=== PATIENT | male | born 1970 | race Caucasian/White ===

== ENCOUNTER 2023-06-29 10:28 | Emergency (ER) | payer OTHER, SELFPAY ==
--- NOTE | 2023-06-29 10:32 | ED.DENTAL ---
HPI - Dental/Oral General Chief complaint: Dental/Oral Stated complaint: Dental Pain Time Seen by Provider: 06/29/23 10:43 Mode of arrival: ambulatory Limitations: no limitations History of Present Illness HPI Narrative: 52-year-old male presents with concern for right lower dental pain. Reports he has had problems with this teeth for some time. He reports he has been alternate Tylenol ibuprofen. Reports jaw swelling. Reports he has a dentist that he can follow-up with. He denies fever or trouble swallowing MD Complaint: tooth pain Related Data Allergies Allergy/AdvReac Type Severity Reaction Status Date / Time No Known Allergies Allergy Verified 06/29/23 10:49 Review of Systems Review of Systems: CONSTITUTIONAL: Denies malaise, chills, sweats, or fever. EYES: Denies visual changes ENT: Denies rhinorrhea, congestion, sinus pain, otalgia or sore throat. Reports right lower dental pain CARDIOVASCULAR: Denies chest pain, palpitations RESPIRATORY: Denies cough or dyspnea. SKIN: Denies rash or itching. MUSCULOSKELETAL: Denies myalgia. NEUROLOGIC: Denies numbness, weakness, or headache. All systems reviewed & are unremarkable except as noted in HPI and below PMFSH Comments At time of signature, agree with nursing past medical, surgical, social and family history. There is no relevant family history pertinent to the presenting complaint Exam Narrative: GENERAL: Well-appearing, well-nourished, and in no acute distress. HEAD: Normocephalic, atraumatic. EYES: PERRLA, sclera clear ENT: Nares clear, turbinates pink, no rhinorrhea or epistaxis. Mucous membranes moist. TM pearly velazco with sharp light reflex bilaterally; no tragal tenderness. Oropharynx without erythema or lesions. Tonsils not enlarged and without exudate. Missing teeth, broken teeth, caries, right jaw swelling NECK: Supple. No lymphadenopathy. CHEST: No respiratory distress. Speaks in full sentences. HEART: Regular rate and rhythm. SKIN: Warm, dry, no visible rash. NEURO: Alert and oriented x3. PSYCH: Normal mood and affect Course Course Emergency Course: Patient is aware of diagnosis, understands and agrees to treatment plan. Anticipatory guidance given. Patient agrees to follow-up as directed and is aware of reasons to seek care at the emergency department. Portions of this record may have been created with voice recognition software Level of Care: [facility] Care Visit Vital Signs Vital signs: Reviewed. MDM - Dental/Oral MDM Narrative Medical decision making narrative: Patients pain and complaint coupled with physical findings are consistant with dentalgia. There are no focal signs of space occupying lesions that are compromising to the airway; no dysphagia, odynophagia, dysphonia, or dyspnea. No uvular deviation or soft palate edema. Patient is non-toxic appearing. The floor of the mouth is soft with no signs of Karel's Angina; no induration below mandible, no neck pain. Patient is without trismus or drooling and able to swallow secretions. Patient is felt appropriate for discharge home with dental follow up. Differential Diagnosis Differential diagnosis: Likely gingival abscess, dental caries, toothache, dental abscess, fracture of tooth and aphthous ulcer Critical Care Time Critical Care Time Critical Care Time: No Discharge Plan Discharge Clinical Impression: Dental abscess Patient Disposition: Home, Self-Care Condition: Stable Instructions: Antibiotic Form, Dental Abscess (ED) Additional Instructions: Take antibiotic as directed Avoid temperature extremes May apply heat or ice to the face Gentle brushing and flossing Alternate Tylenol and ibuprofen as needed for pain Follow-up with the dentist as soon as possible Prescriptions: New clindamycin HCl 300 mg capsule 300 mg PO Q8H 7 Days Qty: 21 0RF ketorolac 10 mg tablet 10 mg PO Q6H PRN (Reason: pain) 5 Days Qty: 20 0RF Follow-up/Refer
[2023-06-29 10:40] VITALS: BP 164/74; PULSE 100; RESP 16; TEMP 36.3; O2SAT 99
== END 2023-06-29 10:58 | disposition home or self-care (01) ==
PROVIDERS: Emergency Provider Nurse Practitioner
DX: K04.7 Periapical abscess without sinus (principal)
CPT/HCPCS: 99203; G0463

== ENCOUNTER 2023-12-01 12:48 | Emergency (ER) | payer OTHER, SELFPAY ==
--- NOTE | ~2023-12-01 | XR_ITS ---
EXAMINATION: XR wrist RT min 3V DATE: 12/01/2023 13:39 INDICATION: Right wrist pain post fall TECHNIQUE: Posteroanterior, ulnar deviation, oblique, and lateral views of the right wrist were obtai delma. COMPARISON: none FINDINGS: Bone alignment is normal. No fracture. Mild osteoarthritis at the first interphalangeal and fifth dis katalina interphalangeal joints. Subtle calcific density projecting over the soft tissues at the palmar/ul dar side of the wrist near the pisiform on the oblique projection which could represent dystrophic so ft tissue calcifications are partially calcified loose body potentially in the pisotriquetral recess. There is soft tissue swelling along the ulnar side of the wrist. IMPRESSION: 1. No acute osseous abnormality. Reviewed, dictated and finalized at location A.
[2023-12-01 13:16] VITALS: BP 158/75; PULSE 93; RESP 20; TEMP 36.8; O2SAT 100
--- NOTE | 2023-12-01 13:43 | ED.UPPEXIN ---
HPI - Extremity Injury (Upper) General Chief Complaint: Extremity Injury, Upper Stated Complaint: Right Wrist/Hand Pain Time Seen by Provider: 12/01/23 13:35 Source: patient and RN notes reviewed Mode of arrival: ambulatory Limitations: no limitations History of Present Illness HPI narrative: 53-year-old male presents with concern for right wrist pain, swelling. Reports he fell last night. Reports pain started this morning. He reports difficulty with full digit flexion. Denies open skin. Denies decreased strength or sensation. MD complaint: injury to: right and wrist Related Data Home Medications Medication Instructions Recorded Confirmed No Home Medications 12/01/23 12/01/23 Allergies Allergy/AdvReac Type Severity Reaction Status Date / Time No Known Allergies Allergy Verified 12/01/23 12:53 Review of Systems Review of Systems: CONSTITUTIONAL: Denies malaise, chills, sweats, or fever. SKIN: Denies rash or itching, open skin, laceration, abrasion, redness, warmth MUSCULOSKELETAL: Reports right wrist pain, swelling, redness NEUROLOGIC: Denies numbness, weakness All systems reviewed & are unremarkable except as noted in HPI and below PMFSH Comments At time of signature, agree with nursing past medical, surgical, social and family history. There is no relevant family history pertinent to the presenting complaint Exam Narrative: GENERAL: Well-appearing, well-nourished, and in no acute distress. HEAD: Normocephalic, atraumatic. EYES: PERRLA, conjunctivae clear NECK: Supple. CHEST: Speaks in full sentences. No respiratory distress. HEART: Regular rate and rhythm. Normal and equal peripheral pulses. EXTREMITIES: Right wrist, hand, digits have grossly normal strength and sensation, limited range of motion with flexion. Mild circumferential wrist edema, mild erythema, no warmth or ecchymosis. Normal sensation with sensitivity to light touch and pain. General wrist tenderness. No open wounds, no skin tenting, no devitalized tissue or atrophy, no trophic changes, no obvious deformity, alignment normal, nearby joints and structures intact. Distal pulses palpable and equal bilaterally, skin warm, dry, pink. Capillary refill less than 3 seconds. SKIN: Warm, dry, no rash. NEURO: Alert and oriented x3. PSYCH: Normal mood and affect Course Course Emergency Course: Patient is aware of diagnosis, understands and agrees to treatment plan. Anticipatory guidance given. Patient agrees to follow-up as directed and is aware of reasons to seek care at the emergency department. Portions of this record may have been created with voice recognition software Level of Care: Express Care Visit Vital Signs Vital signs: Vital Signs Temperature 98.2 F 12/01/23 13:16 Pulse Rate 93 12/01/23 13:16 Respiratory Rate 20 12/01/23 13:16 Blood Pressure 158/75 H 12/01/23 13:16 Pulse Oximetry 100 12/01/23 13:16 Oxygen Delivery Room Air 12/01/23 13:16 Temperature 98.2 F 12/01/23 13:16 Pulse Rate 93 12/01/23 13:16 Respiratory Rate 20 12/01/23 13:16 Blood Pressure 158/75 H 12/01/23 13:16 Pulse Oximetry 100 12/01/23 13:16 Oxygen Delivery Room Air 12/01/23 13:16 Reviewed. MDM - Extremity Injury (Upper) MDM Narrative Medical decision making narrative: Patients injury and pain is consistent with musculoskeletal etiology. No signs of neurological or vascular compromise on exam. Compartments and tissues are soft without signs of compartment syndrome. Pain is felt appropriate for further evaluation on an outpatient basis. Imaging Data My impression: Images reviewed, interpreted by radiologist, agree, see report. Radiologist's impression: EXAMINATION: XR wrist RT min 3V DATE: 12/01/2023 13:39 INDICATION: Right wrist pain post fall TECHNIQUE: Posteroanterior, ulnar deviation, oblique, and lateral views of the right wrist were obtained. COMPARISON: none FINDINGS: Bone alignment i
== END 2023-12-01 14:10 | disposition home or self-care (01) ==
PROVIDERS: Emergency Provider Nurse Practitioner
DX: S63.501A Unspecified sprain of right wrist, initial encounter (principal); S66.911A Strain of unspecified muscle, fascia and tendon at wrist and hand level, right hand, initial encounter; W19.XXXA Unspecified fall, initial encounter
CPT/HCPCS: 73110; 99213; G0463

== ENCOUNTER 2024-06-09 11:16 | Emergency (ER) | payer OTHER, SELFPAY ==
--- NOTE | ~2024-06-09 | XR_ITS ---
Left Shoulder Technique: AP and scapular Y views were obtained. Clinical History: Pain Findings: No fracture or dislocation is seen. Osseous alignment is anatomic. The glenohumeral and acr omioclavicular joint spaces are preserved. Soft tissues are unremarkable. Impression: Unremarkable left shoulder radiographs. Reviewed, dictated and finalized at [facility]. Impression: Unremarkable left shoulder radiographs.
[2024-06-09 11:28] VITALS: BP 177/79; PULSE 82; RESP 19; TEMP 37.1; O2SAT 98
--- NOTE | 2024-06-09 11:28 | ED.UPPEXIN ---
HPI - Extremity Injury (Upper) General Chief Complaint: Extremity Problem,Nontraumatic Stated Complaint: Left Shoulder Pain Time Seen by Provider: 06/09/24 11:20 Source: patient Mode of arrival: ambulatory Limitations: no limitations History of Present Illness HPI narrative: Patient is a 53 mm presents with left shoulder pain for 2 weeks. 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 Patient also reports prying a heavy door open and about 10 months later pain started. Patient has tried [id number] medications with relief. Denies numbness, tingling or weakness to distal portion arm. Reports pain with movement. Denies any swelling or bruising Related Data Home Medications Medication Instructions Recorded Confirmed syringe with needle 3 mL 21 gauge 06/09/24 06/09/24 x 1 1/2 (BD Luer-Lisset Syringe) testosterone cypionate 200 mg/mL 100 mg IM DIRECTED 06/09/24 06/09/24 intramuscular oil Allergies Allergy/AdvReac Type Severity Reaction Status Date / Time No Known Allergies Allergy Verified 06/09/24 11:28 Review of Systems Review of Systems: All systems reviewed & are unremarkable except as noted in HPI and below Constitutional: Constitutional: Denies body ache(s), Denies chills, Denies fatigue, Denies fever(s), Denies headache(s), Denies malaise and Denies weakness Eyes: Eyes: Denies blurry vision, Denies irritation and Denies loss of vision ENT: Denies otalgia, Denies headache(s), Denies nasal discharge, Denies sinus pain and Denies sore throat Cardiovascular: Cardiovascular: Denies chest pain, Denies irregular heart rhythm and Denies dyspnea Respiratory: Respiratory: Denies dyspnea Gastrointestinal: Gastrointestinal: Denies abdominal pain, Denies melena, Denies hematochezia, Denies diarrhea, Denies nausea and Denies vomiting Musculoskeletal: Musculoskeletal: Denies back pain, Denies myalgias and Reports arthralgias Integumentary/Breasts: Skin/Breast: Denies pruritus and Denies rash Neurologic: Denies headache(s), Denies loss of vision and Denies weakness Psychiatric: Psychiatric: Reports no additional psychiatric complaints Endocrine: Endocrine: Denies fatigue PMFSH Social History Social History Smoking status: Never smoker Comments At time of signature, agree with nursing past medical, surgical, social and family history. There is no relevant family history pertinent to the presenting complaint. Exam Const: General: cooperative, healthy appearing, comfortable, no acute distress and well nourished Nutritional Appearance: well nourished Orientation/consciousness: patient oriented x3 Limitations: no limitations HENMT: Head: normal to inspection, normocephalic and atraumatic Ears: hearing grossly normal bilaterally and external ears normal Face/Nose/Sinus: Normal external nose present, normal facial exam and face symmetric Face and sinus: normal facial exam and face symmetric Mouth: Yes lip normal Eyes: General: appearance normal, both eyes and all related structures Alignment and Position: alignment normal and position normal Periorbital: periorbital findings normal Eyelids: eyelids normal Pupils: Equal, round and reactive pupils present EOM: EOMs intact bilaterally Neck: Neck: normal visual inspection, full ROM and supple Chest: Chest palpation & inspection: normal inspection of the chest Resp: Effort & Inspection: normal respiratory effort and able to speak in complete sentences Auscultation: clear to auscultation bilaterally Cardio: Rate: regular rate Rhythm: regular rhythm Heart sounds: S1 normal heart sound present and S2 normal heart sound present GI: Inspection: normal to inspection Skin: General skin exam: normal color and no rashes or lesions noted Neuro: General: patient oriented x3 and moves all extremities Cranial nerves: Yes Equal, round and reactive pupils present Speech:
== END 2024-06-09 12:45 | disposition home or self-care (01) ==
PROVIDERS: Emergency Provider Nurse Practitioner Family
DX: S46.002A Unspecified injury of muscle(s) and tendon(s) of the rotator cuff of left shoulder, initial encounter (principal); X50.3XXA Overexertion from repetitive movements, initial encounter
CPT/HCPCS: 73030; 99213; A4565; G0463

== ENCOUNTER 2024-06-12 15:10 | Emergency (ER) | payer OTHER, SELFPAY ==
[2024-06-12 15:23] VITALS: BP 182/79; PULSE 109; RESP 16; TEMP 36.6; O2SAT 99
--- NOTE | 2024-06-12 16:09 | PC.NURSE ---
1610 pt seen leaving clinic at 1610.
== END 2024-06-12 16:10 | disposition left against medical advice (07) ==
PROVIDERS: Emergency Provider Internal Medicine Hematology & Oncology
DX: Z53.21 Procedure and treatment not carried out due to patient leaving prior to being seen by health care provider (principal)
CPT/HCPCS: 99199

== ENCOUNTER 2024-08-04 16:56 | Emergency (ER) | payer OTHER, SELFPAY ==
--- NOTE | ~2024-08-04 | US_ITS ---
EXAMINATION: US venous doppler LE RT DATE: 08/04/2024 19:12 INDICATION: Right lower limb pain TECHNIQUE: Grayscale ultrasound images without and with compression and Doppler ultrasound images of the right lower extremity veins were obtained. COMPARISON: None. FINDINGS: The visualized portions of right common femoral vein, profunda (deep) femoral vein, femoral vein, pop liteal vein, peroneal trunk, posterior tibial veins, peroneal veins, gastrocnemius vein and greater s aphenous vein outflow are patent. IMPRESSION: 1. No deep venous thrombosis in the right lower limb. Reviewed, dictated and finalized at location A. RSHED ENGINEER
--- NOTE | ~2024-08-04 | XR_ITS ---
EXAMINATION: XR hip RT 2V w AP pelvis DATE: 08/04/2024 19:05 INDICATION: Nontraumatic right hip pain TECHNIQUE: Anteroposterior view of the pelvis and anteroposterior and frog-leg lateral views of the a ffected hip were obtained. COMPARISON: None. FINDINGS: Bone alignment is normal. No fracture or suspected osteonecrosis. There is mild osteoarthritis at the bilateral hips with small marginal osteophytes along the femoral heads and acetabula. There is decre ased anterosuperior right femoral head neck offset on the frog-leg lateral projection which could pre dispose towards cam-type femoral acetabular impingement. Small enthesophyte at the bilateral lesser t rochanters. Moderate lower lumbar spondylosis. Mild osteoarthritis at the bilateral sacroiliac joints . IMPRESSION: 1. No acute osseous abnormality. 2. Moderate lower lumbar spondylosis and mild bilateral hip and sacroiliac osteoarthritis. Reviewed, dictated and finalized at location A. R PROGRAMMER IMPRESSION: 1. No acute osseous abnormality. 2. Moderate lower lumbar spondylosis and mild bilateral hip and sacroiliac oste oarthritis.
[2024-08-04 16:59] VITALS: BP 187/64; PULSE 103; RESP 18; TEMP 36.7; O2SAT 100
--- NOTE | 2024-08-04 18:50 | ED_ITS ---
HPI - Extremity Injury (Lower) General Chief Complaint: Extremity Injury, Lower Stated Complaint: right leg pain Time Seen by Provider: 08/04/24 18:27 Source: patient Mode of arrival: wheelchair Limitations: no limitations History of Present Illness HPI Narrative: This is a 53-year-old male that presents to the emergency department for right hip pain. Ongoing over the last week. No known injury or trauma. Reports the pain radiates into his upper thigh. Denies fevers, erythema, or edema. Related Data Home Medications Medication Instructions Recorded Confirmed syringe with needle 3 mL 21 gauge 06/09/24 06/09/24 x 1 /2 (BD Luer-Lisset Syringe) testosterone cypionate 200 mg/mL 100 mg IM DIRECTED 06/09/24 06/09/24 intramuscular oil Allergies Allergy/AdvReac Type Severity Reaction Status Date / Time No Known Allergies Allergy Verified 06/09/24 11:28 Review of Systems Review of Systems: CONSTITUTIONAL: Denies fever SKIN: Denies rash MUSCULOSKELETAL: Reports joint pain, and myalgia. NEUROLOGIC: Denies numbness, or weakness. All systems reviewed & are unremarkable except as noted in HPI and below PMFSH Past Medical History Medical History (Updated 08/04/24 @ 20:08 by Ilda Richardson PA-C) No active medical problems Social History Social History (Updated 08/04/24 @ 18:51 by Ilda Richardson PA-C) Smoking status: Current every day smoker Exam Narrative: GENERAL: Well-appearing, well-nourished, and in no acute distress. HEAD: Normocephalic, atraumatic. EYES: EOMI. EXTREMITIES: Normal range of motion. No edema or erythema. Normal DP pulse. Normal sensation SKIN: Warm, dry, no rash. NEURO: No focal deficits. Alert and oriented x3. PSYCH: Normal mood and affect Course Course Emergency Course: patient updated on his workup and agrees with plan of care Vital Signs Vital signs: Vital Signs Temperature 98.1 F 08/04/24 16:59 Pulse Rate 103 H 08/04/24 16:59 Respiratory Rate 18 08/04/24 16:59 Blood Pressure 187/64 H 08/04/24 16:59 Pulse Oximetry 100 08/04/24 16:59 Oxygen Delivery Room Air 08/04/24 16:59 Temperature 98.1 F 08/04/24 16:59 Pulse Rate 103 H 08/04/24 16:59 Respiratory Rate 18 08/04/24 16:59 Blood Pressure 187/64 H 08/04/24 16:59 Pulse Oximetry 100 08/04/24 16:59 Oxygen Delivery Room Air 08/04/24 16:59 MDM - Extremity Injury (Lower) MDM Narrative Medical decision making narrative: patient presents to the emergency department for right hip pain due to ongoing over the last week. He is afebrile and nontoxic appearing. He is neurovascularly intact. Right hip/ pelvic x-ray without acute osseous abnormalities. Right lower extremity venous Doppler without evidence of DVT. Patient updated on his workup and agrees with plan of care. Will be given follow-up with Orthopedics. He was given warnings to return to the ER Differential Diagnosis Differential diagnosis: Likely other (hip sprain, DVT, osteoarthritis) Imaging Data Radiologist's impression: ITS Impressions Hip/Pelvis X-Ray 08/04/24 19:09 IMPRESSION: 1. No acute osseous abnormality. 2. Moderate lower lumbar spondylosis and mild bilateral hip and sacroiliac osteoarthritis. Venous Doppler Study 08/04/24 19:13 IMPRESSION: 1. No deep venous thrombosis in the right lower limb. Critical Care Time Critical Care Time Critical Care Time: No Discharge Plan Discharge Clinical Impression: Femoroacetabular impingement of right hip Osteoarthritis Qualifiers: Osteoarthritis location: hip Osteoarthritis type: unspecified Laterality: right Qualified Code(s): M16.11 - Unilateral primary osteoarthritis, right hip Patient Disposition: Home, Self-Care Condition: Stable Instructions: Osteoarthritis (ED) Additional Instructions: Return to the ER if you experience fever, redness and swelling of your extremity, numbness or any other symptoms that are concerning to you [id number] pain medication as needed. Prescribed pain medication as needed Follow up with orthopedics for further care. Prescriptions: New tramadol 50 mg tablet 50 mg PO Q6H PRN (Reason: pain) Qty: 10 0RF No Action testosterone cypionate 200 mg/mL oil 100 mg IM DIRECTED (DME) syringe with needle [BD Luer-Lisset Syringe] 3 mL 21 gauge x 1 1/2 syringe MISCELLANEOUS prednisone 20 mg tablet 40 mg PO DAILY 5 Days Qty: 10 0RF baclofen 10 mg tablet 10 mg PO TID 5 Days Qty: 15 0RF lidocaine 5 % adhesive patch,medicated 1 patch topical DAILY Qty: 15 0RF Rx Instructions: leave on most painful area for up to 12 hrs Follow-up/Referrals: Jorge Tran MD [Physician] - PHYSICIAN,TABLET MACHINE OPERATOR [Primary Care Provider] -
[2024-08-04 20:21] VITALS: BP 130/62; PULSE 72; RESP 18; TEMP 36.6; O2SAT 99
== END 2024-08-04 20:24 | disposition home or self-care (01) ==
PROVIDERS: Emergency Provider Physician Assistant
DX: M25.851 Other specified joint disorders, right hip (principal); M16.0 Bilateral primary osteoarthritis of hip; F17.200 Nicotine dependence, unspecified, uncomplicated; M47.816 Spondylosis without myelopathy or radiculopathy, lumbar region; M46.1 Sacroiliitis, not elsewhere classified
CPT/HCPCS: 73502; 93971; 99284

== ENCOUNTER 2024-08-09 16:30 | Emergency (ER) | payer OTHER, SELFPAY ==
--- NOTE | ~2024-08-09 | XR_ITS ---
XR shoulder RT min 2V Ordering provider: Ilda Richardson PA-C History: . right shoulder pain . Comparison: None. FINDINGS: BONES: No acute fracture or dislocation. JOINT SPACES: The acromioclavicular joint is normal. The glenohumeral joint is normal. SOFT TISSUES: Normal. IMPRESSION: No acute osseous abnormality right shoulder. Reviewed, dictated and finalized at location A. HER OF GIFTED STUDENTS
[2024-08-09 16:38] VITALS: BP 170/74; PULSE 110; RESP 18; TEMP 36.9; O2SAT 99
--- NOTE | 2024-08-09 23:00 | PC.NURSE ---
Assumed care of pt from TIANNA Robb at this time.
[2024-08-09 23:02] VITALS: BP 152/74; PULSE 104; RESP 19; TEMP 36.9; O2SAT 98
--- NOTE | 2024-08-09 23:51 | ED_ITS ---
HPI - Extremity Problem General Chief complaint: Extremity Problem,Nontraumatic Stated complaint: right shoulder pain-injured in May Time Seen by Provider: 08/09/24 23:01 Source: patient Mode of arrival: ambulatory Limitations: no limitations History of Present Illness HPI Narrative: This is a 53-year-old male that presents to the emergency department for right shoulder pain. Ongoing since that injury at work several months ago. Reports he needs a note to be able to go back to work. Reports decreased range of motion due to pain. Denies numbness. Related Data Home Medications Medication Instructions Recorded Confirmed syringe with needle 3 mL 21 gauge 06/09/24 06/09/24 x 1 1/2 (BD Luer-Lisset Syringe) testosterone cypionate 200 mg/mL 100 mg IM DIRECTED 06/09/24 06/09/24 intramuscular oil Allergies Allergy/AdvReac Type Severity Reaction Status Date / Time No Known Allergies Allergy Verified 06/09/24 11:28 Review of Systems Review of Systems: CONSTITUTIONAL: Denies fever MUSCULOSKELETAL: Reports joint pain, and myalgia. NEUROLOGIC: Denies numbness, or weakness. All systems reviewed & are unremarkable except as noted in HPI and below PMFSH Past Medical History Medical History (Updated 08/09/24 @ 23:55 by Ilda Richardson PA-C) No active medical problems Social History Social History (Updated 08/04/24 @ 18:51 by Ilda Richardson PA-C) Smoking status: Current every day smoker Exam Narrative: GENERAL: Well-appearing, well-nourished, and in no acute distress. HEAD: Normocephalic, atraumatic. EYES: EOMI. EXTREMITIES: Decreased active ROM in the right shoulder due to pain. No edema or erythema. Normal radial pulse. Normal sensation SKIN: Warm, dry, no rash. NEURO: No focal deficits. Alert and oriented x3. PSYCH: Normal mood and affect Course Course Emergency Course: Patient updated on his workup and agrees with plan of care Vital Signs Vital signs: Vital Signs Temperature 98.5 F 08/09/24 16:38 Pulse Rate 110 H 08/09/24 16:38 Respiratory Rate 18 08/09/24 16:38 Blood Pressure 170/74 H 08/09/24 16:38 Pulse Oximetry 99 08/09/24 16:38 Oxygen Delivery Room Air 08/09/24 16:38 Temperature 98.4 F 08/09/24 23:02 Pulse Rate 104 H 08/09/24 23:02 Respiratory Rate 19 08/09/24 23:02 Blood Pressure 152/74 H 08/09/24 23:02 Pulse Oximetry 98 08/09/24 23:02 Oxygen Delivery Room Air 08/09/24 16:38 MDM - Extremity (Nontraumatic) MDM Narrative Medical decision making narrative: Patient presents to the emergency department for right shoulder pain. Ongoing over several months after an injury at work. He is neurovascularly intact. Right shoulder x-ray without acute osseous abnormalities. Will be given a note to return to work. He is to follow up with primary provider. He was given warnings to return to the ER Imaging Data Radiologist's impression: ITS Impressions Shoulder X-Ray 08/09/24 23:17 IMPRESSION: No acute osseous abnormality right shoulder. Critical Care Time Critical Care Time Critical Care Time: No Discharge Plan Discharge Clinical Impression: Acute pain of right shoulder Patient Disposition: Home, Self-Care Condition: Stable Instructions: Shoulder Pain (ED) Additional Instructions: Return to the ER if you experience fever, redness and swelling of your arm, weakness, numbness, or any other symptoms that are concerning to you Rest, use ice/heat, take anti-inflammatories (Aleve, Ibuprofen, Naproxen, etc) or Tylenol as needed for pain Follow up with your primary care doctor Prescriptions: No Action testosterone cypionate 200 mg/mL oil 100 mg IM DIRECTED (DME) syringe with needle [BD Luer-Lisset Syringe] 3 mL 21 gauge x 1 1/2 syringe MISCELLANEOUS prednisone 20 mg tablet 40 mg PO DAILY 5 Days Qty: 10 0RF baclofen 10 mg tablet 10 mg PO TID 5 Days Qty: 15 0RF lidocaine 5 % adhesive patch,medicated 1 patch topical DAILY Qty: 15 0RF Rx Instructions: leave on most painful area for up to 12 hrs tramadol 50 mg tablet 50 mg PO Q6H PRN (Reason: pain) Qty: 10 0RF Follow-up/Referrals: Obdulio Hernandes MD [Physician] - PHYSICIAN,TECHNICIAN TRAINEE [Primary Care Provider] - Stand Alone Forms: Work/School Release IP
== END 2024-08-10 00:13 | disposition home or self-care (01) ==
PROVIDERS: Emergency Provider Physician Assistant
DX: M25.511 Pain in right shoulder (principal); F17.210 Nicotine dependence, cigarettes, uncomplicated
CPT/HCPCS: 73030; 99283

== ENCOUNTER 2024-09-15 15:52 | Emergency (ER) | payer OTHER, SELFPAY ==
[2024-09-15 15:58] VITALS: BP 127/69; PULSE 83; RESP 20; TEMP 36.4; O2SAT 98
--- NOTE | 2024-09-15 16:19 | ED_ITS ---
HPI - URI/Sore Throat General Chief Complaint: Upper Respiratory Infection Stated Complaint: Respiratory/fever/SOB Time Seen by Provider: 09/15/24 16:19 Source: patient Mode of arrival: ambulatory Limitations: no limitations History of Present Illness HPI Narrative: 54-year-old male presents with complaint of cough, congestion, fatigue, body aches, fever for 2 days. Denies nausea vomiting diarrhea. No abdominal discomfort. Taking [id number] medications to treat symptoms. All systems reviewed and negative except as noted above. Related Data Home Medications ?Medication ?Instructions ?Recorded ?Confirmed ?Last Taken ?Type syringe with needle 3 mL 21 gauge 06/09/24 06/09/24 Unknown History x 1 09/09 (BD Luer-Lisset Syringe) testosterone cypionate 200 mg/mL 100 mg IM DIRECTED 06/09/24 06/09/24 Unknown History intramuscular oil Allergies Allergy/AdvReac Type Severity Reaction Status Date / Time No Known Allergies Allergy Verified 09/15/24 15:54 Review of Systems Review of Systems: CONSTITUTIONAL: reports fever, chills, or sweats. EYES: Denies visual changes, redness, or discharge. ENT: reports rhinorrhea, congestion, sore throat. Denies otalgia. CARDIOVASCULAR: Denies chest pain, palpitations, or edema. RESPIRATORY: Reports cough. Denies dyspnea. GASTROINTESTINAL: Denies abdominal pain, nausea, vomiting, or diarrhea. GENITOURINARY: Denies dysuria or hematuria. SKIN: Denies rash or itching. MUSCULOSKELETAL: Denies back pain, joint pain, or myalgia. NEUROLOGIC: Denies headache, numbness, or weakness. PSYCHIATRIC: Denies anxiety or depression. All other systems reviewed are negative, except as documented in HPI. PMFSH Past Medical History Medical History (Updated 09/15/24 @ 16:24 by Cherrie Hunter NP) No active medical problems Social History Social History (Updated 08/04/24 @ 18:51 by Ilda Richardson PA-C) Smoking status: Current every day smoker Comments At time of signature, agree with nursing past medical, surgical, social and family history. There is no relevant family history pertinent to the presenting complaint. Exam Narrative: GENERAL: This is a well-nourished, well-developed patient, ill-appearing but no acute distress HEAD: normocephalic, atraumatic. EYES: PERRL. Sclera clear/white. Vision is grossly intact. EARS: External ears normal, auditory canals clear and without drainage, TMs normal without perforation. Hearing grossly intact. NOSE: External nose normal with clear nasal drainage, mild congestion THROAT: Mucous membranes moist, mild erythema with no swelling or exudates NECK: Neck supple, non-tender without lymphadenopathy, masses or thyromegaly. CARDIOVASCULAR: Regular rate and rhythm without murmurs, gallops, or rubs. RESPIRATORY: Clear to auscultation. Breath sounds equal bilaterally. No wheezes, rales, or rhonchi. SKIN: warm, Dry, intact with no suspicious lesions or rash, good texture and turgor. NEURO: awake, alert, and oriented to person, place and time. There were no obvious focal neurologic abnormalities. EXTREMITIES: No joint tenderness, effusion, or edema noted. Course Course Level of Care: Express Care Visit Vital Signs Vital signs: Vital Signs Temperature 36.4 C L 09/15/24 15:58 Pulse Rate 83 09/15/24 15:58 Respiratory Rate 20 09/15/24 15:58 Blood Pressure 127/69 09/15/24 15:58 Pulse Oximetry 98 09/15/24 15:58 Oxygen Delivery Room Air 09/15/24 15:58 Temperature 36.4 C L 09/15/24 15:58 Pulse Rate 83 09/15/24 15:58 Respiratory Rate 20 09/15/24 15:58 Blood Pressure 127/69 09/15/24 15:58 Pulse Oximetry 98 09/15/24 15:58 Oxygen Delivery Room Air 09/15/24 15:58 reviewed MDM - URI/Sore Throat MDM Narrative Medical decision making narrative: Patient is aware of diagnosis, understands and agrees to treatment plan. Anticipatory guidance given. Patient agrees to follow-up as directed and is aware of reasons to seek care at the emergency department. Portions of this record may have been created with voice recognition software positive influenza a. Lungs clear to auscultation. Will prescribe antiviral at patient's request. Patient well-appearing, nontoxic. Lab Data Labs: Lab Results 09/15/24 Range/Units 16:01 POC Influenza A Ag Negative (Negative) POC Influenza B Ag Negative (Negative) POC SARS CoV-2 Ag Negative (Negative) Discharge Plan Discharge Clinical Impression: Influenza A Patient Disposition: Home, Self-Care Condition: Stable Instructions: Influenza (ED) Additional Instructions: you were positive for influenza today. Influenza is a virus and symptoms may last 7-10 days. Take antiviral as prescribed. Take Tylenol or ibuprofen every 6-8 hours as needed for pain and fever. Drink at least 64 oz of water a day. Follow-up with your primary care physician if symptoms are not improving. Patient Language: Croatian Prescriptions: New oseltamivir [Tamiflu] 75 mg capsule 75 mg PO Q12H 5 Days Qty: 10 0RF No Action testosterone cypionate 200 mg/mL oil 100 mg IM DIRECTED (DME) syringe with needle [BD Luer-Lisset Syringe] 3 mL 21 gauge x 1 1/2 syringe MISCELLANEOUS tramadol 50 mg tablet 50 mg PO Q6H PRN (Reason: pain) Qty: 10 0RF Follow-up/Referrals: PHYSICIAN,LEGAL EXECUTIVE ASSISTANT [Primary Care Provider] - Time of Disposition: 16:24
[2024-09-15 16:23] LABS: EDCOVIDSCREEN Negative (Negative); EDINFLUBSCREEN Negative (Negative)
[2024-09-20 08:47] LABS: EDINFLUASCREEN Positive (Negative)
== END 2024-09-15 16:30 | disposition home or self-care (01) ==
PROVIDERS: Emergency Provider Nurse Practitioner Family
DX: J10.1 Influenza due to other identified influenza virus with other respiratory manifestations (principal); F17.200 Nicotine dependence, unspecified, uncomplicated; Z20.822 Contact with and (suspected) exposure to COVID-19
CPT/HCPCS: 87426; 87804; 99213; G0463